=== PATIENT | male | born 1955 | race Caucasian/White ===

== ENCOUNTER 2017-06-27 18:58 | Emergency (ER) | payer OTHER ==
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
[2017-06-27] MEDS ORDERED: CEPHALEXIN MONOHYDRATE 500 MG CAP PO ONE (19:36)
[2017-06-27] MEDS ORDERED: traMADol 37.5MG/APAP 325MG 1 EA TAB PO ONE (19:36)
[2017-06-27] MEDS ORDERED: TETANUS,DIPHTHERIA,PERTUSSIS 1 EA SYG IM ONE (19:36)
[2017-06-27] MEDS ORDERED: NEOMYCIN-BACITRACIN-POLYMYXIN 0.9 GM UD TOP ONE (19:36)
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
[2017-06-27 21:02] VITALS: BP 134/74; TEMP 98.2; O2SAT 98
== END 2017-06-27 20:20 | disposition home or self-care (01) ==
LOC: ER 18:58
DX: S81.842A Puncture wound with foreign body, left lower leg, initial encounter (principal); S81.841A Puncture wound with foreign body, right lower leg, initial encounter; Z23 Encounter for immunization; W33.01XA Accidental discharge of shotgun, initial encounter; Y92.89 Other specified places as the place of occurrence of the external cause